=== PATIENT | female | born 1995 | race Caucasian/White ===

== ENCOUNTER 2024-05-05 13:35 | Emergency (ER) | payer BC, OTHER ==
[~2024-05-05] VITALS: Ht 167.6 cm; Wt 59.1 kg
[2024-05-05 13:45] VITALS: BP 118/72; PULSE 72; RESP 16; TEMP 98.4; O2SAT 100
== END 2024-05-05 14:49 | disposition left against medical advice (07) ==
LOC: EMS 13:35
DX: S83.512A Sprain of anterior cruciate ligament of left knee, initial encounter (principal); V00.321A Fall from snow-skis, initial encounter; Y93.23 Activity, snow (alpine) (downhill) skiing, snowboarding, sledding, tobogganing and snow tubing; Y92.89 Other specified places as the place of occurrence of the external cause; Y99.8 Other external cause status
CPT/HCPCS: 29505; 73721; 99284; Z7502

== ENCOUNTER 2024-05-20 10:30 | Day surgery (SDC) | payer OTHER ==
[~2024-05-20] VITALS: Ht 165.1 cm; Wt 70.5 kg
[~2024-05-20 10:30] MED LIST: BUPIVACAINE 0.25%/EPI 1:200,000/PF 30 ML VIAL ONE; CeFAZolin 2 GM/DEXTROSE 50 ML IV ONE; EPINEPHrine 1:1,000 [1 MG/ML] VIAL ONE; KETOROLAC TROMETHAMINE 30 MG/ML VIAL ONE; RINGERS SOLUTION,LACTATED 1,000 ML IV ONE; SODIUM CL IRRIG SOLN BAG 3,000 ML IRRIG ONE; SODIUM CL IRRIG SOLN BAG 9,000 ML IRRIG ONE; TRANEXAMIC ACID 1,000 MG in DEXTROSE 5%-WATER 50 ML IV ONE
[2024-05-20] MEDS ORDERED: HYDR-4061 PO (10:37)
[2024-05-20] MEDS ORDERED: NAPR-1196 PO (10:37)
[2024-05-20] MEDS: RINGERS SOLUTION,LACTATED 1,000 ML IV ONE (11:08)
[2024-05-20] MEDS: CHLORHEXIDINE GLUCONATE 2% TOWELETTE [2'S/6'S] TP ONE (11:09)
[2024-05-20] MEDS: ETHYL ALCOHOL 62% ANTISEPTIC NASAL SANITIZER 0.6 ML AMPUL NASAL ONE (11:09)
[2024-05-20] MEDS ORDERED: FentaNYL CITRATE PF 100 MCG/2 ML VIAL IVP ONE (12:00)
[2024-05-20] MEDS ORDERED: MIDAZOLAM HCL 2 MG/2 ML VIAL IVP ONE (12:00)
[2024-05-20] MEDS ORDERED: FAT EMULSION 20% 250 ML IV ONE (12:04)
[2024-05-20] MEDS ORDERED: MEPERIDINE-PF 25 MG/ML VIAL IVP PRN (13:00)
[2024-05-20] MEDS: BUPIVACAINE HCL/PF 0.25% 30 ML VIAL ONE (13:07)
[2024-05-20] MEDS: BUPIVACAINE LIPOSOME/PF 1.3%-13.3MG/ML SUSP 20 ML VIAL INJ ONE (13:07)
[2024-05-20] MEDS ORDERED: ACETAMINOPHEN 1000 MG/ISO-OSM 100 ML IV ONE (14:33)
[2024-05-20] MEDS ORDERED: HYDROmorphone HCL 2 MG/ML SYRINGE ONE (14:38)
[2024-05-20] MEDS: HYDROmorphone HCL 2 MG/ML SYRINGE IVP PRN (14:41)
[2024-05-20] MEDS ORDERED: FentaNYL CITRATE PF 100 MCG/2 ML VIAL ONE (15:05)
[2024-05-20] MEDS: FentaNYL CITRATE PF 100 MCG/2 ML VIAL IVP PRN (15:06)
[2024-05-20] MEDS: ACETAMINOPHEN 1000 MG/ISO-OSM 100 ML IV ONE (15:47)
[2024-05-20] MEDS: ONDANSETRON HCL 4 MG/2 ML VIAL IVP ONE (16:21)
[2024-05-20] MEDS ORDERED: OXYGEN THERAPY IH SCH (20:00)
[2024-05-20] MEDS ORDERED: ASPIRIN 81 MG CHEWABLE TABLET PO SCH (21:00)
== END 2024-05-20 17:35 | disposition home or self-care (01) ==
LOC: SURGERY 10:30
PROVIDERS: ATTEND Orthopaedic Surgery
DX: S83.512A Sprain of anterior cruciate ligament of left knee, initial encounter (principal); S83.282A Other tear of lateral meniscus, current injury, left knee, initial encounter; W18.09XA Striking against other object with subsequent fall, initial encounter; Y93.23 Activity, snow (alpine) (downhill) skiing, snowboarding, sledding, tobogganing and snow tubing; Y92.89 Other specified places as the place of occurrence of the external cause; Y99.8 Other external cause status
CPT/HCPCS: 29888; 29882; 84703; 64447; J0666; J3490 ×2; J0171; J3010; J1171; J2250; J2405; J7060; J7120; J0131; J0690; C1713; J1885